=== PATIENT | female | born 1955 | race Caucasian/White ===

== ENCOUNTER → 2017-02-04 | Outpatient (CLI) | payer MEDICARE ==
[2017-02-04 09:33] LABS: RED BLOOD COUNT 4.71 M/UL (4.00-5.10); WHITE BLOOD COUNT 7.8 K/UL (4.5-11.0)
[2017-02-04 09:45] LABS: BUN/CREATININE RATIO 22 (0-10)
== END ==
LOC: LAB 08:34
PROVIDERS: Nurse Practitioner Primary Care
DX: I25.10 Atherosclerotic heart disease of native coronary artery without angina pectoris (principal); G89.29 Other chronic pain; M54.16 Radiculopathy, lumbar region; M25.78 Osteophyte, vertebrae; M48.06 Spinal stenosis, lumbar region; E66.01 Morbid (severe) obesity due to excess calories; E78.5 Hyperlipidemia, unspecified; D51.0 Vitamin B12 deficiency anemia due to intrinsic factor deficiency; G47.33 Obstructive sleep apnea (adult) (pediatric); M81.0 Age-related osteoporosis without current pathological fracture; L93.0 Discoid lupus erythematosus; J44.9 Chronic obstructive pulmonary disease, unspecified; E11.9 Type 2 diabetes mellitus without complications; M79.1 Myalgia; M47.816 Spondylosis without myelopathy or radiculopathy, lumbar region
CPT/HCPCS: 36415; 80053; 80061; 82043; 82570; 83036; 84443; 85025

== ENCOUNTER → 2017-04-03 | Outpatient (CLI) | payer MEDICARE | LOC: KOH-I 13:00 | DX: M81.0 Age-related osteoporosis without current pathological fracture (principal); M85.80 Other specified disorders of bone density and structure, unspecified site; M85.88 Other specified disorders of bone density and structure, other site; M85.852 Other specified disorders of bone density and structure, left thigh | CPT/HCPCS: 77080 ==

== ENCOUNTER → 2017-04-04 | Outpatient (CLI) | payer MEDICARE, SELFPAY ==
[~2017-04-04] VITALS: Ht 172.7 cm; Wt 81.6 kg
== END ==
LOC: OPSV 13:57
DX: M32.10 Systemic lupus erythematosus, organ or system involvement unspecified (principal)
CPT/HCPCS: 96365; J0490

== ENCOUNTER → 2017-04-17 | Outpatient (CLI) | payer MEDICARE, OTHER ==
[~2017-04-17] VITALS: Ht 172.7 cm; Wt 81.6 kg
== END ==
LOC: OPSV 08:57
DX: M32.10 Systemic lupus erythematosus, organ or system involvement unspecified (principal)
CPT/HCPCS: 96365; J0490

== ENCOUNTER → 2017-05-02 | Outpatient (CLI) | payer MEDICARE, OTHER ==
[~2017-05-02] VITALS: Ht 172.7 cm; Wt 81.6 kg
== END ==
LOC: OPSV 08:37
DX: M32.10 Systemic lupus erythematosus, organ or system involvement unspecified (principal)
CPT/HCPCS: 96365; J0490

== ENCOUNTER → 2021-01-09 | Outpatient (CLI) | payer MEDICARE, OTHER ==
[~2021-01-09] MED LIST: BENZONATATE100 MG PO; BUTALB-ACETAMI1 EACH PO; ZOFRAN ODT 4 MG4 MG PO
== END ==
LOC: CT 11:27 → HEART 5 01-10 13:30
DX: I87.1 Compression of vein (principal)
CPT/HCPCS: 36415; 82565; Q9967

== ENCOUNTER → 2021-01-10 | Outpatient (CLI) | payer MEDICARE, OTHER | LOC: HEART 5 12:58 | DX: I87.1 Compression of vein (principal) | CPT/HCPCS: 93970 ==

== ENCOUNTER → 2021-02-03 | Outpatient (CLI) | payer MEDICARE, OTHER | LOC: KOH-I 09:25 | DX: Z12.2 Encounter for screening for malignant neoplasm of respiratory organs (principal); F17.210 Nicotine dependence, cigarettes, uncomplicated; R91.8 Other nonspecific abnormal finding of lung field; D35.02 Benign neoplasm of left adrenal gland | CPT/HCPCS: 71271 ==

== ENCOUNTER → 2021-03-07 | Outpatient (CLI) | payer MEDICARE, OTHER | LOC: KOH-I 10:56 | DX: M32.9 Systemic lupus erythematosus, unspecified (principal); M79.7 Fibromyalgia | CPT/HCPCS: 73030 ==

== ENCOUNTER → 2021-05-24 | Outpatient (CLI) | payer MEDICARE, OTHER | LOC: KOH-I 08:09 | DX: M85.80 Other specified disorders of bone density and structure, unspecified site (principal); E55.9 Vitamin D deficiency, unspecified; M32.9 Systemic lupus erythematosus, unspecified; D35.02 Benign neoplasm of left adrenal gland; Z80.3 Family history of malignant neoplasm of breast; M47.812 Spondylosis without myelopathy or radiculopathy, cervical region | CPT/HCPCS: 72141 ==

== ENCOUNTER 2021-08-02 19:17 | Emergency (ER) | payer MEDICARE, OTHER ==
[2021-08-02 20:32] LABS: HEMOGLOBIN 13.6 gm/dl (12.3-15.3); RED BLOOD COUNT 4.33 M/UL (4.00-5.10); WHITE BLOOD COUNT 13.4 K/UL (4.5-11.0)
[2021-08-03] MEDS ORDERED: KEFLEX750 MG PO (16:56)
== END 2021-08-03 02:50 | disposition home or self-care (01) ==
LOC: ER1 19:17
PROVIDERS: Physician Assistant Medical
DX: R60.0 Localized edema (principal); J44.9 Chronic obstructive pulmonary disease, unspecified; I10 Essential (primary) hypertension; Z90.49 Acquired absence of other specified parts of digestive tract; Z88.8 Allergy status to other drugs, medicaments and biological substances; Z79.82 Long term (current) use of aspirin; Z90.710 Acquired absence of both cervix and uterus; F17.210 Nicotine dependence, cigarettes, uncomplicated
CPT/HCPCS: 80053; 85025; 85379; 85610; 99283

== ENCOUNTER 2021-08-03 11:24 | Emergency (ER) | payer MEDICARE, OTHER ==
[2021-08-03 16:05] LABS: HEMOGLOBIN 13.9 gm/dl (12.3-15.3); RED BLOOD COUNT 4.58 M/UL (4.00-5.10); WHITE BLOOD COUNT 14.4 K/UL (4.5-11.0)
[2021-08-03] MEDS ORDERED: KEFLEX750 MG PO (16:56)
== END 2021-08-03 17:03 | disposition home or self-care (01) ==
LOC: ER1 11:24
PROVIDERS: Student in an Organized Health Care Education/Training Program
DX: L03.115 Cellulitis of right lower limb (principal); J44.9 Chronic obstructive pulmonary disease, unspecified; I10 Essential (primary) hypertension; F17.200 Nicotine dependence, unspecified, uncomplicated
CPT/HCPCS: 85007; 85027; 93971; 96372; 99284; J0696

== ENCOUNTER → 2021-08-14 | Outpatient (CLI) | payer MEDICARE, OTHER ==
[~2021-08-14] MED LIST changes: +KEFLEX750 MG PO
== END ==
LOC: KOH-I 09:23
DX: M79.671 Pain in right foot (principal); M85.80 Other specified disorders of bone density and structure, unspecified site; M32.9 Systemic lupus erythematosus, unspecified
CPT/HCPCS: 73610; 73630

== ENCOUNTER → 2022-01-11 | Outpatient (CLI) | payer MEDICARE, OTHER | LOC: KOH-I 11:43 | DX: R05.9 Cough, unspecified (principal); U09.9 Post COVID-19 condition, unspecified | CPT/HCPCS: 71046 ==

== ENCOUNTER 2022-05-15 17:03 | Emergency (ER) | payer MEDICARE, OTHER ==
[2022-05-15 18:02] LABS: HEMOGLOBIN 12.9 gm/dl (12.3-15.3); RED BLOOD COUNT 4.22 M/UL (4.00-5.10); WHITE BLOOD COUNT 9.3 K/UL (4.5-11.0)
[2022-05-15 18:28] LABS: BUN/CREATININE RATIO 20 (0-10)
== END 2022-05-15 19:23 | disposition left against medical advice (07) ==
LOC: ER1 17:03
PROVIDERS: Emergency Medicine
DX: M79.89 Other specified soft tissue disorders (principal)
CPT/HCPCS: 73590; 80053; 83605; 85025; 85652; 86140; 87040; 99281